=== PATIENT | female | born 1995 | race Caucasian/White ===

== ENCOUNTER 2019-05-20 19:06 | Emergency (ER) | payer SELFPAY, OTHER ==
[2019-05-20] MEDS: IBUPROFEN 600 MG TAB PO (21:27)
[2019-05-20] MEDS: CEPHALEXIN 500 MG CAP PO (21:27)
== END 2019-05-20 22:27 | disposition home or self-care (01) ==
LOC: FTE 19:06
DX: N30.00 Acute cystitis without hematuria (principal); R10.2 Pelvic and perineal pain
CPT/HCPCS: 81025; 87591; 99284